=== PATIENT | male | born 1980 | race Caucasian/White ===

== ENCOUNTER → 2016-11-09 | Outpatient (CLI) | payer BC | LOC: RAD 12:33 | DX: R09.1 Pleurisy (principal) | CPT/HCPCS: 71020 ==

== ENCOUNTER → 2020-07-29 | Outpatient (CLI) | payer BC, OTHER ==
[~2020-07-29] MED LIST: COMFORT PAC-CYC10 MG PO; CYCLOBENZAPRINE10 MG PO
== END ==
LOC: KOH-I 12:24
DX: U07.1 COVID-19 (principal)
CPT/HCPCS: 71046